=== PATIENT | male | born 1985 | race Caucasian/White ===

== ENCOUNTER 2021-08-25 20:22 | Emergency (ER) | payer SELFPAY ==
[~2021-08-25] VITALS: Ht 182.9 cm; Wt 96.2 kg
[2021-08-25] MEDS ORDERED: MAGNESIUM/ALUMINUM HYDROXIDE/SIMETHICONE 30ML UDC PO STA (23:32)
[2021-08-25] MEDS ORDERED: VISCOUS LIDOCAINE 2% 15 ML UDC PO STA (23:32)
[2021-08-25 23:55] LABS: BASOPHILS % 0.8 % (0.0-2.0); EOSINOPHILS % 4.3 % (0.0-5.0); HEMATOCRIT. 38.4 % (42.0-52.0); HEMOGLOBIN. 13.4 g/dL (14.0-18.0); LYMPHOCYTES % 31.6 % (20.0-50.0); MEAN CORPUSCULAR HEMOGLOBIN 30.6 pg (28.0-32.0); MEAN CORPUSCULAR VOLUME 87.8 fL (80.0-94.0); MEAN PLATELET VOLUME 7.6 fl (7.4-10.4); MONOCYTES % 10.5 % (2.0-8.0); NEUTROPHILS % 52.8 % (40.0-76.0); PLATELET 215 x1000/uL (130-400); RED BLOOD CELL COUNT 4.37 mill/uL (4.7-6.1); RED CELL DISTRIBUTION WIDTH 12.8 % (11.6-14.6)
[2021-08-26] LABS: CHLORIDE 113 mEq/L (98-107)
[2021-08-26] MEDS ORDERED: PROT20 MT (00:22)
[2021-08-26 01:50] VITALS: BP 136/88
== END 2021-08-26 02:03 | disposition home or self-care (01) ==
LOC: ER 20:22
DX: K29.20 Alcoholic gastritis without bleeding (principal); F10.10 Alcohol abuse, uncomplicated; Y90.0 Blood alcohol level of less than 20 mg/100 ml; F20.9 Schizophrenia, unspecified
CPT/HCPCS: 36415; 80053; 85025; 93005; 99284